=== PATIENT | female | born 1960 | race Caucasian/White ===

== ENCOUNTER → 2016-10-12 | Day surgery (SDC) | payer OTHER ==
[~2016-10-12] MED LIST: ACETAMINOPHEN 1000 MG/100 ML VIAL IV ONE; APREPITANT 40 MG CAP ONE; ARTIFICIAL TEARS OPTH OINT 3.5 APPLIC/3.5 GM TUBO ONE; BALANCED SALT SOLN OPHT IRRIG 15 ML BTL ONE; LACTATED RINGER'S 1,000 ML BAG IV ONE; LACTATED RINGER'S 1000 ML INJ 1,000 ML ONE; LIDOCAINE 1%/EPINEPHrine 1:100,000 SOLN 30 ML VIAL ONE; LIDOCAINE 2%/EPINEPHrine PF 1:200,000 20ML SDV ONE; MIDAZOLAM HCL 2 MG/2 ML VIAL ONE; NEOMYCIN/POLYMYXIN/BACITRACIN OINT 15 GM TUBE ONE; NEOMYCIN/POLYMYXIN/HYDROCORT OTIC SUSP 10 ML BTL ONE; ONDANSETRON HCL 4 MG/2 ML VIAL IV PUSH ONE; PROPOFOL 200 MG/20 ML AMP IV ONE; ceFAZolin INJ 1,000 MG VIAL ONE
--- NOTE | 2016-10-12 12:45 | TN ---
cc: JOSH CHRISTY M.D. DATE OF SURGERY: 10/12/2016 PREOPERATIVE DIAGNOSIS Facial aging. POSTOPERATIVE DIAGNOSIS Facial aging. PROCEDURE Quad blepharoplasty, cervicofacial rhytidectomy. SURGEON Josh Christy MD ANESTHESIA LMA general. ESTIMATED BLOOD LOSS Minimal. COMPLICATIONS None. DRAINS None. PROCEDURE The patient was properly consented, marked, anesthetized. The skin was sterilized with Microcyn and sterile draping applied. A total of about 100 diluted lidocaine in which 250 ccs normal saline, 30 ccs 1% lidocaine with epinephrine was mixed. A 2% lidocaine with epinephrine was properly injected in incision line as well as on the upper lower blepharoplasty area. After the whole area was properly prepped and draped I proceeded and performed excision of the upper eyelid skin. Exploration of the inner bags were carried out finding minimal to none on the left side, however, there was some more on the right side. This was properly removed and whatever was needed. Through a subciliary incision a myocutaneous flap was elevated by leaving 2 mm of muscle attached down to the orbital septum, was properly ___ down to the arcus marginalis. Release of the septum was carried out and proceeded and performed the redistribution of the fat bags after releasing the arcus marginalis in the usual fashion. With this we proceeded and performed the anchoring of the lower fat bags, three of them into the inner, mid and lateral. 6-0 Monocryl suture was utilized. A lateral lower lid canthopexy was done utilizing a 5-0 clear silk anchored to the superior inner aspect of the orbital periosteum. Closure of the wounds were done by approximating orbicularis oculi and lower eyelid as well as the dermis and subcuticular 6-0 Prolene was applied to the lower and upper eyelid, both were secured utilizing Steri-Strips. The contralateral side was approached exactly in the same manner as previously described. Attention was directed to the submental area where a submental incision of 3.5 to 4 cm. The dissection was carried out beyond the thyroid cartilage. I proceeded and removed some of the pre and retro-platysma fat and the plication was done of the platysma in the usual fashion with 4-0 Mersilene suture. I proceeded and did a myotomy at the lower junction of the plication to allow further tensionless redraped of the platysmal muscle. At this point through a pre and postauricular incision the cervicofacial was elevated and I plicate superiorly and laterally this mass and platysmal muscle utilizing 4-0 Mersilene in a running fashion and at this point tissue glue was sprayed into the flap and pressure left. Good adhesion was kept and wounds were closed in the preauricular with 5-0 Monocryl suture and 5-0 fast absorbing gut and the postauricular 3-0 Monocryl suture and surgical angella. The mental incision, submental incision was closed utilizing 3-0 Monocryl suture and Steri-Strips applied. Overall, absorbent dressings and compression dressings were applied covered with netting. Overall, great viability of tissue was noted at the end of the case. The patient was awakened, extubated in the operating room and transferred back to the postanesthesia care unit in stable condition. No complications were appreciated. The patient tolerated the procedure fairly well. MD JACQUELYN Jacques/DEANNA /11:35 AM /12:13 PM
== END | disposition home or self-care (01) ==
LOC: ESDC 06:16
PROVIDERS: ATTEND Plastic Surgery
DX: Z41.1 Encounter for cosmetic surgery (principal)
CPT/HCPCS: 00103; 00300; 15820; 15822; 15828; J0131; J0690; J2250; J2405; J3010; J7120; J8501